=== PATIENT | female | born 1995 | race Caucasian/White ===

== ENCOUNTER 2017-05-23 19:54 | Emergency (ER) | payer OTHER ==
[~2017-05-23] VITALS: Ht 157.5 cm; Wt 97.8 kg
[~2017-05-23 19:54] MED LIST: BUPRTAB51 PO; VNTHFA/IN INH
[2017-05-23 19:56] VITALS: TEMP 36.5
[2017-05-23 20:29] VITALS: Ht 157.5 cm; Wt 97.8 kg
[2017-05-23 20:38] LABS: MANUAL MICROSCOPIC REQUIRED? NO; REVIEW REQ? NO; URINE APPEARANCE TURBID (CLEAR); URINE BILIRUBIN NEG (NEG); URINE COLOR YELLOW; URINE EPITHELIAL CELL AUTO >30 /lpf (0-5); URINE NITRITE NEG (NEG); UROBILINOGEN NEG (NEG)
[2017-05-23 21:04] LABS: BASO % 0.1 %; BASO ABS # 0.02 K/uL (0-0.2); COMPLETE YES; EOS % 0.7 %; HEMATOCRIT 40.2 % (37-47); IG% 0.7 %; LYMPH % 18.7 %; LYMPH ABS # 3.52 K/uL (1.2-3.4); MEAN CELL VOLUME 87.6 fL (80-100); MEAN CORPUSCULAR HEMOGLOBIN 30.7 pg (25-34); MEAN CORPUSCULAR HGB CONC 35.1 g/dl (32-36); MONO % 9.1 %; NEUT % 70.7 %; PLATELET COUNT 194 K/uL (130-400); RED BLOOD COUNT 4.59 M/uL (4.2-5.4); WHITE BLOOD COUNT 18.82 K/uL (4.8-10.8)
[2017-05-23 21:12] LABS: BUN/CREATININE RATIO 11.6 (10-20); CALCIUM 9.2 mg/dl (8.5-10.1); CREATININE 0.64 mg/dl (0.60-1.20); POTASSIUM 3.4 mmol/L (3.5-5.1)
[2017-05-23 21:13] LABS: PARTIAL THROMBOPLASTIN RATIO 1.2; PROTHROMBIN TIME (PATIENT) 10.2 SECONDS (9.0-12.0)
[2017-05-23 21:15] LABS: ALB/GLOB RATIO 1.1 (0.9-2)
[2017-05-23] MEDS ORDERED: CEFTRIAXONE SOD INJ 1 GM ADDVIAL IV STA (21:26)
--- NOTE | 2017-05-23 23:28 | DIAGNOSTIC IMAGING REPORT ---
ABDOMEN LIMITED (US) HISTORY: 21 years-old Female rlq abd pain COMPARISON: Pelvic ultrasound of same day TECHNIQUE: Multiple real-time sonographic images of the abdominal right lower quadrant were obtained assessing grayscale appearance FINDINGS/IMPRESSION: Appendix not diagnostically visualized. No secondary signs to suggest acute appendicitis. The above report was generated using voice recognition software. It may contain grammatical, syntax or spelling errors. Electronically signed by: Kb Junior M.D. 05/23/2017 11:27 PM Dictated Date/Time: 05/23/2017 11:25 PM
--- NOTE | 2017-05-23 23:39 | DIAGNOSTIC IMAGING REPORT ---
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 FINDINGS: TRANSABDOMINAL: Anteflexed uterus measures 7.4 x 4.6 x 7.2 cm. Intrauterine gestational sac is seen, 3.9 cm correlating with estimated gestational age of 9 weeks and 2 days. Yolk sac is seen, 0.4 cm. There is a small hypoechoic collection seen adjacent to the inferior gestational sac, 2.1 x 0.6 x 2.6 cm suggesting subchorionic hematoma. Ovaries are not well seen. TRANSVAGINAL: Gravid uterus is seen, 9.5 x 5.5 x 8.1 cm. Twin gestation is noted with 2 separate yolk sacs. Baby A crown rump length correlates with estimated gestational age of 8 weeks and 0 days with heart rate measured at 165 bpm. Yolk sac measures 0.4 cm. Baby B crown-rump length measure correlates with estimated gestational age of 6 weeks and 6 days. heart rate measures 163 bpm. Yolk sac measures 0.4 cm. Left ovary measures 3.8 x 1.5 x 3.9 cm. Arterial inflow within left ovary is seen. Left corpus luteum is noted, 1.9 cm. Right ovary seen, 3.4 x 2.4 x 1.7 cm. Arterial inflow within the right ovary is noted. IMPRESSION: 1. Intrauterine twin gestation with 2 separate yolk sacs noted which appear to be associated with a single gestational sac suggesting monochorionic diamniotic gestation. 2. Left corpus luteum. 3. Small subchorionic hematoma is noted. Attention on follow-up recommended. The above report was generated using voice recognition software. It may contain grammatical, syntax or spelling errors. Electronically signed by: Kb Junior M.D. 05/23/2017 11:38 PM Dictated Date/Time: 05/23/2017 11:30 PM
[2017-05-24] MEDS ORDERED: CEPH500C PO (00:42)
--- NOTE | 2017-05-24 01:30 | EMERGENCY ROOM VISIT NOTE ---
History Report prepared by Paulina: Cecily Ramirez Under the Supervision of: Dr. Bakari Ngo D.O. First contact with patient: 20:11 Chief Complaint: ABDOMINAL PAIN Stated Complaint: FLANK/ABD PAIN,SPOTTING, 8 WEEKS History of Present Illness The patient is a 21 year old female who presents to the Emergency Room with complaints of persistent abdominal pain starting 2 days ago. The patient is currently 8 weeks . She has not yet seen Ob. The last day of her last menstrual period was March 19. She has had 2 previous miscarriages. She describes the pain as cramping with some sharp pains. The pain is in her lower abdomen. She has been feeling dizzy, lightheaded, and fatigued. She has had dysuria starting this morning. She has 1 kidney and has had several kidney infections and UTIs in the past. She usually gets back pain with her kidney infections which she currently does not have. She has had spotting over the past 2 days which began as bright red and is now more brown. She is not passing any products. She denies any fever. She still has her gallbladder and appendix. Her first miscarriage was due to blood type. She had an ultrasound at 7 weeks which was normal. She denies any history of ectopic pregnancies. Source of History: patient Onset: 2 days ago Position: abdomen (lower) Quality: sharp, cramping Timing: other (persistent) Associated Symptoms: + urinary symptoms, + fatigue, No fevers, No back pain Note: Pt reports spotting, dizziness, lightheadedness. Review of Systems See HPI for pertinent positives & negatives. A total of 10 systems reviewed and were otherwise negative. Past Medical & Surgical Medical Problems: (1) Asthma, mild persistent (2) Bipolar 1 disorder Surgical Problems: (1) H/O heart surgery (2) H/O partial nephrectomy (3) S/P tonsillectomy and adenoidectomy Family History Diabetes mellitus FH: cancer FH: kidney disease FH: lung disease FHx: hypertension Heart disease Social History Smoking Status: Current Every Day Smoker Alcohol Use: none Drug Use: marijuana Current/Historical Medications Scheduled Cephalexin Monohydrate (Keflex), 500 MG PO QID Scheduled PRN Albuterol Hfa (Ventolin Hfa), 2 PUFF INH QID PRN for SOB/Wheezing Allergies Coded Allergies: No Known Allergies (Unverified , 05/23/17) Physical Exam Vital Signs Date Time Temp Pulse Resp B/P (MAP) Pulse Ox O2 Delivery O2 Flow Rate FiO2 05/24/17 00:18 69 16 128/73 100 Room Air 05/23/17 23:01 80 18 130/82 100 Room Air 05/23/17 19:56 36.5 94 18 135/84 100 Room Air Physical Exam GENERAL: sitting up in bed, tearful, no acute distress, nontoxic EYE EXAM: normal conjunctiva OROPHARYNX: no exudate, no erythema, lips, buccal mucosa, and tongue normal and mucous membranes are moist NECK: supple, no nuchal rigidity, no adenopathy, non-tender LUNGS: Clear to auscultation. Normal chest wall mechanics HEART: no murmurs, S1 normal and S2 normal ABDOMEN: abdomen soft, minimal diffuse tenderness, normo-active bowel sounds, no masses, no rebound or guarding. BEDSIDE ULTRASOUND: reveals IUP with heart rate of 164. BACK: Back is symmetrical on inspection and there is no deformity, no midline tenderness, no CVA tenderness. PELVIC: normal external genitalia, normal vaginal mucosa, faint white discharge SKIN: no rashes and no bruising UPPER EXTREMITIES: upper extremities are grossly normal. LOWER EXTREMITIES: No pitting edema. NEURO EXAM: Normal sensorium, cranial nerves II-XII grossly intact, normal speech, no gross weakness of arms, no gross weakness of legs. Medical Decision & Procedures ER Provider Diagnostic Interpretation: Radiology results as stated below per my review and the radiologist's interpretation: ABDOMEN LIMITED (US) HISTORY: 21 years-old Female rlq abd pain COMPARISON: Pelvic ultrasound of same day TECHNIQUE: Multiple real-time sonographic images of the abdominal right lower quadrant were obtained assessing grayscale appearance FINDINGS/IMPRESSION: Appendix not diagnostically visualized. No secondary signs to suggest acute appendicitis. The above report was generated using voice recognition software. It may contain grammatical, syntax or spelling errors. Electronically signed by: Kb Junior M.D. 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 FINDINGS: TRANSABDOMINAL: Anteflexed uterus measures 7.4 x 4.6 x 7.2 cm. Intrauterine gestational sac is seen, 3.9 cm correlating with estimated gestational age of 9 weeks and 2 days. Yolk sac is seen, 0.4 cm. There is a small hypoechoic collection seen adjacent to the inferior gestational sac, 2.1 x 0.6 x 2.6 cm suggesting subchorionic hematoma. Ovaries are not well seen. TRANSVAGINAL: Gravid uterus is seen, 9.5 x 5.5 x 8.1 cm. Twin gestation is noted with 2 separate yolk sacs. Baby A crown rump length correlates with estimated gestational age of 8 weeks and 0 days with heart rate measured at 165 bpm. Yolk sac measures 0.4 cm. Baby B crown-rump length measure correlates with estimated gestational age of 6 weeks and 6 days. heart rate measures 163 bpm. Yolk sac measures 0.4 cm. Left ovary measures 3.8 x 1.5 x 3.9 cm. Arterial inflow within left ovary is seen. Left corpus luteum is noted, 1.9 cm. Right ovary seen, 3.4 x 2.4 x 1.7 cm. Arterial inflow within the right ovary is noted. IMPRESSION: 1. Intrauterine twin gestation with 2 separate yolk sacs noted which appear to be associated with a single gestational sac suggesting monochorionic diamniotic gestation. 2. Left corpus luteum. 3. Small subchorionic hematoma is noted. Attention on follow-up recommended. The above report was generated using voice recognition software. It may contain grammatical, syntax or spelling errors. Electronically signed by: Kb Junior M.D. 05/23/2017 11:38 PM Dictated Date/Time: 05/23/2017 11:30 PM Laboratory Results 05/23/17 20:10 Red Blood Count 4.59, Mean Corpuscular Volume 87.6, Mean Corpuscular Hemoglobin 30.7, Mean Corpuscular Hemoglobin Concent 35.1, Mean Platelet Volume 13.0, Neutrophils (%) (Auto) 70.7, Lymphocytes (%) (Auto) 18.7, Monocytes (%) (Auto) 9.1, Eosinophils (%) (Auto) 0.7, Basophils (%) (Auto) 0.1, Neutrophils # (Auto) 13.28, Lymphocytes # (Auto) 3.52, Monocytes # (Auto) 1.72, Eosinophils # (Auto) 0.14, Basophils # (Auto) 0.02 05/23/17 20:10 Test 05/23/17 20:10 05/23/17 23:55 White Blood Count 18.82 K/uL (4.8-10.8) Red Blood Count 4.59 M/uL (4.2-5.4) Hemoglobin 14.1 g/dL (12.0-16.0) Hematocrit 40.2 % (37-47) Mean Corpuscular Volume 87.6 fL (80-100) Mean Corpuscular Hemoglobin 30.7 pg (25-34) Mean Corpuscular Hemoglobin Concent 35.1 g/dl (32-36) Platelet Count 194 K/uL (130-400) Mean Platelet Volume 13.0 fL (7.4-10.4) Neutrophils (%) (Auto) 70.7 % Lymphocytes (%) (Auto) 18.7 % Monocytes (%) (Auto) 9.1 % Eosinophils (%) (Auto) 0.7 % Basophils (%) (Auto) 0.1 % Neutrophils # (Auto) 13.28 K/uL (1.4-6.5) Lymphocytes # (Auto) 3.52 K/uL (1.2-3.4) Monocytes # (Auto) 1.72 K/uL (0.11-0.59) Eosinophils # (Auto) 0.14 K/uL (0-0.5) Basophils # (Auto) 0.02 K/uL (0-0.2) RDW Standard Deviation 44.1 fL (36.4-46.3) RDW Coefficient of Variation 13.9 % (11.5-14.5) Immature Granulocyte % (Auto) 0.7 % Immature Granulocyte # (Auto) 0.14 K/uL (0.00-0.02) Prothrombin Time 10.2 SECONDS (9.0-12.0) Prothromb Time International Ratio 1.0 (0.9-1.1) Activated Partial Thromboplast Time 31.4 SECONDS (21.0-31.0) Partial Thromboplastin Ratio 1.2 Urine Color YELLOW Urine Appearance TURBID (CLEAR) Urine pH 7.0 (4.5-7.5) Urine Specific Frostproof 1.020 (1.000-1.030) Urine Protein NEG (NEG) Urine Glucose (UA) NEG (NEG) Urine Ketones NEG (NEG) Urine Occult Blood NEG (NEG) Urine Nitrite NEG (NEG) Urine Bilirubin NEG (NEG) Urine Urobilinogen NEG (NEG) Urine Leukocyte Esterase LARGE (NEG) Urine WBC (Auto) >30 /hpf (0-5) Urine RBC (Auto) 5-10 /hpf (0-4) Urine Hyaline Casts (Auto) 1-5 /lpf (0-5) Urine Epithelial Cells (Auto) >30 /lpf (0-5) Urine Bacteria (Auto) NEG (NEG) Anion Gap 6.0 mmol/L (3-11) Est Creatinine Clear Calc Drug Dose 153.2 ml/min Estimated GFR () 148.9 Estimated GFR (Non- 128.5 BUN/Creatinine Ratio 11.6 (10-20) Calcium Level 9.2 mg/dl (8.5-10.1) Total Bilirubin 0.2 mg/dl (0.2-1) Aspartate Amino Transf (AST/SGOT) 10 U/L (15-37) Alanine Aminotransferase (ALT/SGPT) 14 U/L (12-78) Alkaline Phosphatase 58 U/L (45-117) Total Protein 7.0 gm/dl (6.4-8.2) Albumin 3.7 gm/dl (3.4-5.0) Globulin 3.3 gm/dl (2.5-4.0) Albumin/Globulin Ratio 1.1 (0.9-2) Human Chorionic Gonadotropin, Quant 112777 mIU/mL Laboratory results per my review. Medications Administered Medications (Trade) Dose Ordered Sig/Amy Route Start Time Stop Time Status Last Admin Dose Admin Ceftriaxone Sodium (Rocephin Inj) 1 gm NOW STAT IV 05/23/17 21:26 05/23/17 21:27 DC 05/23/17 22:59 1 GM ED Course ED COURSE: Vital signs were reviewed and showed normal vitals The patients medical record was reviewed The above diagnostic studies were performed and reviewed. ED treatments and interventions as stated above. 2013: The patient was evaluated in room A9B. A complete history and physical examination was performed. 2120: I reevaluated the patient. She is doing well. 2125: Rocephin Inj 1 gm IV. 2350: Pelvic exam was performed in the presence of a female nurse inside tester. 0033: I discussed the patient's case with Cristy Partida Passenger Car Upholsterer Apprentice. He recommends follow up as an outpatient. 0039: Upon reevaluation, the patient is resting comfortably.I discussed my findings with the patient and she understands and agrees with the treatment plan. Based on the patients age, coexisting illnesses, exam and lab findings the decision to treat as an outpatient was made. The patient remained stable while under my care. The patient appeared well at the time of discharge. Medical Decision Differential diagnoses includes but is not limited to gastritis, peptic ulcer disease, GERD, gallbladder disease, pancreatitis, small bowel obstruction, acute coronary syndrome, pericarditis, ischemic bowel, irritable bowel disease, irritable bowel syndrome, appendicitis, diverticulitis, malignancy, hernia, urinary tract infection, torsion, /ectopic , perforation, trauma, infectious. Patient is a 21-year-old female who presents to the ER who has had 2 previous miscarriages for vaginal leading at 8 weeks . She had no sun done through fascia which showed an IUP. Last menstrual period was March 19. She does have minimal right lower quadrant abdominal pain which comes and goes for the past 3 days. She is admitted to increase urinary frequency, burning and urgency. She also admits to faint spotting since Saturday. Left showed stenosis of 18,000. UA supports a UTI. She is given a gram of Rocephin. CBC on BMP, LFTs were unremarkable. HCG clot was 130,000. GC and chlamydia cultures were sent. Ultrasound suggested twins with a small subchorionic bleed. Her lower quadrants was performed but appendix was not visualized. She has no rebound or guarding. I do not feel CT is warranted at this time as I think her symptoms can be explained by the UTI. She was given program. Patient was updated bedside. Discussed with OB. Patient was discharged to follow-up and have an abdominal recheck within 24 hours. Any worsening of her symptoms she was given strict instructions to return immediately to the ER for another abdominal evaluation. Discussed with Pt concerning signs and symptoms to watch out for. Pt was instructed to follow up with their PCP and discussed with the patient their option to return to the ED at anytime for persistent or worsening symptoms. The appropriate anticipatory guidance and out-patient management, including indications for return to the emergency department, were explained at length to the patient and understood. Medication Reconcilliation Current Medication List: was personally reviewed by me Blood Pressure Screening Patient's blood pressure: Normal blood pressure Blood pressure disposition: Did not require urgent referral Consults Time Called: 001 Consulting Physician: Cristy Partida Passenger Car Upholsterer Apprentice Returned Call: [phone] I discussed the patient's case with him. He recommends follow up as an outpatient. Impression Primary Impression: Lower abdominal pain Additional Impressions: Vaginal bleeding UTI (urinary tract infection) Scribe Attestation The scribe's documentation has been prepared under my direction and personally reviewed by me in its entirety. I confirm that the note above accurately reflects all work, treatment, procedures, and medical decision making performed by me. Departure Information Dispostion Home / Self-Care Prescriptions Cephalexin Monohydrate (Keflex) 500 Mg Cap 500 MG PO QID, #40 CAP Prov: Bakari Ngo, 05/24/17 Referrals Vipul Culver M.D. (PCP) Forms HOME CARE DOCUMENTATION FORM, IMPORTANT VISIT INFORMATION Patient Instructions ED UTI Cystitis Female, My [facility] Additional Instructions Please follow up with your DIGITAL FIELD SERVICE TECHNICIAN with in the next 24 hours. Any worsening of your symptoms, please return to the ED immediately. This includes any fevers greater than 100.4, worsening pain, chest pain, shortness breath, persistent nausea, vomiting, unable to eat or drink, vaginal bleeding, vaginal discharge, or any other concerning signs or symptoms from your standpoint. Please take antibiotics as prescribed. Ultrasound of the abdomen was then able to visualize the appendix. If you start to have focal right lower quadrant abdominal pain you need to return immediately to the ER. Problem Qualifiers Additional Impressions: UTI (urinary tract infection) Urinary tract infection type: acute cystitis Hematuria presence: with hematuria Qualified Codes: N30.01 - Acute cystitis with hematuria
[2017-05-24 01:31] VITALS: BP 123/87; PULSE 86; O2SAT 99
[2017-05-27 10:37] LABS: CHLAMYDIA TRACH RNA*** NOT DETECTED (NOT DETECTED); GC (NEIS GONORRHOEAE)RNA** NOT DETECTED (NOT DETECTED)
== END 2017-05-24 01:32 | disposition home or self-care (01) ==
LOC: C.EDB 19:55 → C.EDA 05-24 01:32
DX: O23.41 Unspecified infection of urinary tract in pregnancy, first trimester (principal); O99.331 Smoking (tobacco) complicating pregnancy, first trimester; F17.210 Nicotine dependence, cigarettes, uncomplicated; Z3A.08 8 weeks gestation of pregnancy; O99.341 Other mental disorders complicating pregnancy, first trimester; F12.90 Cannabis use, unspecified, uncomplicated; O99.511 Diseases of the respiratory system complicating pregnancy, first trimester; Z90.5 Acquired absence of kidney; J45.909 Unspecified asthma, uncomplicated; F31.9 Bipolar disorder, unspecified; Z83.3 Family history of diabetes mellitus; Z82.49 Family history of ischemic heart disease and other diseases of the circulatory system

== ENCOUNTER 2017-10-20 14:38 | Emergency (ER) | payer OTHER ==
[~2017-10-20] VITALS: Ht 157.5 cm; Wt 100.7 kg
[~2017-10-20 14:38] MED LIST changes: -BUPRTAB51 PO; +CEPH500C PO; -VNTHFA/IN INH
[2017-10-20 14:58] VITALS: Ht 157.5 cm; Wt 100.7 kg
[2017-10-20] MEDS ORDERED: SODIUM CHLORIDE 0.9% 500ML 500 ML IV STA (16:10)
[2017-10-20] MEDS ORDERED: POLY335019 PO (16:20)
[2017-10-20] MEDS ORDERED: PRENTAB26 PO (16:20)
[2017-10-20 16:38] LABS: BASO % 0.1 %; BASO ABS # 0.02 K/uL (0-0.2); EOS % 0.9 %; EOS ABS # 0.15 K/uL (0-0.5); HEMATOCRIT 35.3 % (37-47); HEMOGLOBIN 12.1 g/dL (12.0-16.0); LYMPH % 17.8 %; LYMPH ABS # 2.96 K/uL (1.2-3.4); MEAN CELL VOLUME 88.5 fL (80-100); MEAN CORPUSCULAR HEMOGLOBIN 30.3 pg (25-34); MEAN CORPUSCULAR HGB CONC 34.3 g/dl (32-36); MEAN PLATELET VOLUME 11.9 fL (7.4-10.4); MONO % 9.2 %; MONO ABS # 1.53 K/uL (0.11-0.59); NEUT % 70.8 %; NEUT ABS # 11.78 K/uL (1.4-6.5); PLATELET COUNT 179 K/uL (130-400); RED CELL DISTRIBUTION WIDTH CV 13.2 % (11.5-14.5); RED CELL DISTRIBUTION WIDTH SD 42.7 fL (36.4-46.3); WHITE BLOOD COUNT 16.64 K/uL (4.8-10.8)
--- NOTE | 2017-10-20 16:43 | EMERGENCY ROOM VISIT NOTE ---
History First contact with patient: 15:55 Chief Complaint: SYNCOPE Stated Complaint: 7 MOS ,PASSED OUT & FELL DOWN STAIRS - Nursing Triage Summary: Patient presents with c/o dizziness and syncopal episode last night States she fell down her steps and injured tailbone and legs Ambulatory to triage History of Present Illness The patient is a 22 year old female who presents to the Emergency Room with complaints of a near syncopal episode and fall that occurred last night. The patient became very dizzy. She says that her legs went to "jelly." She fell down 4 wooden steps landing on her buttocks and striking her back against last step. She is complaining of lower back discomfort and pain in her tailbone. The patient is 7 months . She has had a high risk . She has been seeing an [facility] doctor every 2 weeks. The patient is concerned that she has not been feeling the baby move today is much as usual. She denies any lower abdominal cramping or bleeding. She denies any current dizziness. She denies any chest pain or difficulty breathing prior to falling. She has been eating and drinking normally. 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 Review of Systems 10 system review performed and negative unless noted in HPI or below Past Medical/Surgical History Medical Problems: (1) Asthma, mild persistent (2) Bipolar 1 disorder Surgical Problems: (1) H/O heart surgery (2) H/O partial nephrectomy (3) S/P tonsillectomy and adenoidectomy Family History Diabetes mellitus FH: cancer FH: kidney disease FH: lung disease FHx: hypertension Heart disease Social History Smoking Status: Current Every Day Smoker Alcohol Use: none Drug Use: marijuana Marital Status: in relationship Current/Historical Medications Scheduled Cephalexin Monohydrate (Keflex), 500 MG PO QID Multivit/Min/Iron/Fol Ac/Pren ( Vitamin), 1 TAB PO DAILY Polyethylene Glycol 3350 (Miralax), 17 GM PO DAILY Scheduled PRN Albuterol Hfa (Ventolin Hfa), 2 PUFFS INH QID PRN for SOB/Wheezing Physical Exam Vital Signs Date Time Temp Pulse Resp B/P (MAP) Pulse Ox O2 Delivery O2 Flow Rate FiO2 10/20/17 19:01 37.0 93 18 124/75 98 10/20/17 18:13 82 17 124/75 98 Room Air 10/20/17 17:13 77 23 98 10/20/17 17:13 85 16 98 Room Air 10/20/17 17:08 80 21 98 10/20/17 17:03 94 10 97 10/20/17 16:58 83 19 99 10/20/17 16:53 86 21 99 10/20/17 16:52 87 10/20/17 16:20 89 16 126/86 98 Room Air 89 123/88 106 139/94 10/20/17 16:15 139/94 10/20/17 14:58 37.0 108 16 128/85 97 Room Air Physical Exam VITALS: Vitals are noted on the nurse's note and reviewed by myself. Vital signs stable. GENERAL: 22-year-old female, anxious in appearance, SKIN: The skin was without rashes, erythema, edema, or bruising. HEAD: Normocephalic atraumatic. EYES: . Conjunctivae without injection, sclerae without icterus. Extraocular movements intact. MOUTH: Mucous membranes slightly dry. NECK: Supple without nuchal rigidity. No lymphadenopathy. Cervical spine is nontender. No JVD. HEART: Tachycardic, regular rhythm without murmurs gallops or rubs. LUNGS: Clear to auscultation bilaterally without wheezes, rales or rhonchi. No accessory muscle use. ABDOMEN: Gravid. Positive bowel sounds x 4.Soft, nontender, without organomegaly. No guarding or rebound tenderness. No CVA tenderness bilaterally. MUSCULOSKELETAL: Mild tenderness over the lumbar spinous processes. No tenderness over the SI joint. No muscle atrophy, erythema, or edema noted. Full range of motion in all extremities Strength 5/5 throughout. DP pulse +2 bilaterally. NEURO: Patient was alert and oriented to person place and time. Normal sensation to touch. No focal neurological deficits. Medical Decision & Procedures ER Provider Diagnostic Interpretation: US Patient Name: DOROTEO BENSON Unit Number: [id number] Dictated: 10/20/171736 Transcribed: 10/20/171736 RAFAEL Printed Date/Time: [~ rep prt dt]/[~ rep prt tm] [~ rep ct labl] - [~ rep ct ivnm] [facility] [place] [address] Dictated: 10/20/171736 Transcribed: 10/20/17 173 PAJ Printed Date/Time: [~ rep prt dt]/[~ rep prt tm] [~ rep ct labl] - [~ rep ct ivnm] IMPRESSION: Single viable 29 week and 4 day intrauterine gestation. The heart rate was 128 bpm. Electronically signed by: Mo Kraft M.D. 10/20/2017 5:41 PM Dictated Date/Time: 10/20/2017 5:37 PM The status of this report is Signed. Draft = Not yet reviewed or approved by Radiologist. Signed = Reviewed and approved by Radiologist. <AttendingPhy></AttendingPhy> <FamilyPhy>Vipul Culver M.D.</FamilyPhy> < PrimaryPhy>Vipul Culver M.D.</PrimaryPhy> <UnitNumber>[id number]</ UnitNumber> <VisitNumber>[id number]</VisitNumber> <PatientName>DOROTEO BENSON</ PatientName> <DateOfBirth>1995</DateOfBirth> <Location>[facility]</Location> < ServiceDate>10/20/17</ServiceDate> <MNE>ESINDI</MNE> <OrderingPhy>Karina Rees PA-C</OrderingPhy> <OrderingPhyMNE>f rep ord dr negron</OrderingPhyMNE> < DictatingPhyMNE>f rep dict dr negron</DictatingPhyMNE> <CCListMNE>f rep ct mne</ CCListMNE> <AdmittingPhyMNE>f pt admit dr negron</AdmittingPhyMNE> <AttendingPhyMNE >f pt attend dr negron</AttendingPhyMNE> <ConsultingPhyMNE>f pt consult dr negron</ConsultingPhyMNE> <FamilyPhyMNE>f pt fam dr negron</FamilyPhyMNE> <OtherPhyMNE>f pt other dr negron</OtherPhyMNE> < PrimaryPhyMNE>f pt prim care dr negron</PrimaryPhyMNE> <ReferringPhyMNE>f pt referring dr mne</ReferringPhyMNE> Laboratory Results 10/20/17 16:28 Red Blood Count 3.99, Mean Corpuscular Volume 88.5, Mean Corpuscular Hemoglobin 30.3, Mean Corpuscular Hemoglobin Concent 34.3, Mean Platelet Volume 11.9, Neutrophils (%) (Auto) 70.8, Lymphocytes (%) (Auto) 17.8, Monocytes (%) (Auto) 9.2, Eosinophils (%) (Auto) 0.9, Basophils (%) (Auto) 0.1, Neutrophils # (Auto) 11.78, Lymphocytes # (Auto) 2.96, Monocytes # (Auto) 1.53, Eosinophils # (Auto) 0.15, Basophils # (Auto) 0.02 10/20/17 16:28 Test 10/20/17 16:16 10/20/17 16:28 Urine Color YELLOW Urine Appearance TURBID (CLEAR) Urine pH 7.5 (4.5-7.5) Urine Specific [place] 1.020 (1.000-1.030) Urine Protein NEG (NEG) Urine Glucose (UA) NEG (NEG) Urine Ketones NEG (NEG) Urine Occult Blood NEG (NEG) Urine Nitrite POS (NEG) Urine Bilirubin NEG (NEG) Urine Urobilinogen NEG (NEG) Urine Leukocyte Esterase LARGE (NEG) Urine WBC (Auto) >30 /hpf (0-5) Urine RBC (Auto) 0-4 /hpf (0-4) Urine Hyaline Casts (Auto) 10-30 /lpf (0-5) Urine Epithelial Cells (Auto) >30 /lpf (0-5) Urine Bacteria (Auto) 4+ (NEG) White Blood Count 16.64 K/uL (4.8-10.8) Red Blood Count 3.99 M/uL (4.2-5.4) Hemoglobin 12.1 g/dL (12.0-16.0) Hematocrit 35.3 % (37-47) Mean Corpuscular Volume 88.5 fL (80-100) Mean Corpuscular Hemoglobin 30.3 pg (25-34) Mean Corpuscular Hemoglobin Concent 34.3 g/dl (32-36) Platelet Count 179 K/uL (130-400) Mean Platelet Volume 11.9 fL (7.4-10.4) Neutrophils (%) (Auto) 70.8 % Lymphocytes (%) (Auto) 17.8 % Monocytes (%) (Auto) 9.2 % Eosinophils (%) (Auto) 0.9 % Basophils (%) (Auto) 0.1 % Neutrophils # (Auto) 11.78 K/uL (1.4-6.5) Lymphocytes # (Auto) 2.96 K/uL (1.2-3.4) Monocytes # (Auto) 1.53 K/uL (0.11-0.59) Eosinophils # (Auto) 0.15 K/uL (0-0.5) Basophils # (Auto) 0.02 K/uL (0-0.2) RDW Standard Deviation 42.7 fL (36.4-46.3) RDW Coefficient of Variation 13.2 % (11.5-14.5) Immature Granulocyte % (Auto) 1.2 % Immature Granulocyte # (Auto) 0.20 K/uL (0.00-0.02) Anion Gap 10.0 mmol/L (3-11) Est Creatinine Clear Calc Drug Dose 164.7 ml/min Estimated GFR () > 150.0 Estimated GFR (Non- 130.3 BUN/Creatinine Ratio 9.9 (10-20) Calcium Level 8.9 mg/dl (8.5-10.1) Total Bilirubin 0.2 mg/dl (0.2-1) Aspartate Amino Transf (AST/SGOT) 17 U/L (15-37) Alanine Aminotransferase (ALT/SGPT) 21 U/L (12-78) Alkaline Phosphatase 84 U/L (45-117) Troponin I < 0.015 ng/ml (0-0.045) Total Protein 6.6 gm/dl (6.4-8.2) Albumin 2.9 gm/dl (3.4-5.0) Globulin 3.7 gm/dl (2.5-4.0) Albumin/Globulin Ratio 0.8 (0.9-2) Medications Administered Medications (Trade) Dose Ordered Sig/Amy Route Start Time Stop Time Status Last Admin Dose Admin Sodium Chloride 500 ml @ 999 mls/hr Q31M STAT IV 10/20/17 16:10 10/20/17 16:40 DC 10/20/17 16:44 999 MLS/HR Ceftriaxone Sodium (Rocephin Im) 1,000 mg NOW ONCE IM 10/20/17 18:30 10/20/17 18:31 DC 10/20/17 18:39 1,000 MG ECG Indication: syncope Rate (beats per minute): 104 Rhythm: sinus tachycardia ED Course Patient was seen and examined Vital signs including blood pressure were reviewed medications list was verified with patient Labs were obtained, and a saline lock was established An EKG was performed and reviewed by myself and my supervising physician The patient was hydrated with 500 mL normal saline An ultrasound was performed and reviewed The patient was reassessed. She had requested her IV be taken now as it was hurting. We discussed the results of her workup. She voiced understanding. The patient was given 1 dose of Rocephin 1 g IM The case was discussed with Dr. Murguia from [facility]. The patient was reassessed and resting comfortably. She was comfortable being discharged home. I reviewed discharge instructions the patient. They voiced understanding and had no further questions. Medical Decision Differential diagnosis: Dehydration, vasovagal syncope, neurogenic syncope, cardiac arrhythmia, pulmonary embolus, infectious etiology This patient is a 22-year-old female that is 7 months presents to the emergency department with a near syncopal episode and fall down4 wooden steps. On exam, she did not have any signs of significant trauma. No bruising. She is neurovascularly intact. She did not complain of any chest pain or difficulty breathing. I do not suspect cardiac ischemia or arrhythmia. Her EKG shows no signs of ischemia. I also have low suspicion for pulmonary embolus. She appeared slightly dehydrated on exam. Her workup reveals a UTI. The patient does not have any CVA tenderness. She did have a white count of 16, 000. Believe this is the cause of her lightheadedness/weakness. A ultrasound was performed. is viable. No signs of trauma. Heart rate 128 bpm The case was discussed with on-call [facility] HEALTH ADVISOR. They were comfortable with her being discharged home. A urine culture was sent. Patient was treated with 1 dose of Rocephin in the emergency department. She will be sent home with a seven-day course of Keflex per [facility] recommendations. The patient was cautioned to return to the emergency department immediately with any new or worsening symptoms. This chart was completed in part utilizing [employer] Voice Recognition software. Attempts were made to minimize the grammatical errors, random word insertions, pronoun errors and incomplete sentences. Any formal questions or concerns about the content, text or information contained within the body of this dictation should be directly addressed to the provider for clarification. Medication Reconcilliation Current Medication List: was personally reviewed by me Blood Pressure Screening Patient's blood pressure: Normal blood pressure Impression Primary Impression: UTI (urinary tract infection) Departure Information Dispostion Home / Self-Care Condition GOOD Prescriptions Cephalexin Monohydrate (Keflex) 500 Mg Cap 500 MG PO QID for 7 Days, #28 CAP Prov: Karina Rees PA-C 10/20/17 Referrals Vipul Culver M.D. (PCP) Patient Instructions My [facility], UTI Additional Instructions You have been evaluated in the emergency department for an episode of significant weakness and fall. Your workup is consistent with a urinary tract infection, which is likely the cause of the weakness. It is very important for you to finish the entire course of antibiotics Stay well hydrated. Increase your fluid intake over the next several days Please call your [facility] doctor in the morning for a follow-up appointment Tylenol 650 mg every 6 hours as needed for pain Please do not hesitate to return to the emergency department with any new, worsening or concerning symptoms; especially, lower abdominal cramping, vaginal bleeding, decreased movement, fever, flank pain or vomiting Work Instructions Return To Work: 1 day
[2017-10-20] MEDS ORDERED: VNTHFA/IN INH (16:48)
[2017-10-20 16:55] LABS: ALBUMIN 2.9 gm/dl (3.4-5.0); ALT/SGPT 21 U/L (12-78); BLOOD UREA NITROGEN 6 mg/dl (7-18); CALCIUM 8.9 mg/dl (8.5-10.1); CARBON DIOXIDE 22 mmol/L (21-32); GLUCOSE 86 mg/dl (70-99); POTASSIUM 3.8 mmol/L (3.5-5.1); SODIUM 138 mmol/L (136-145)
[2017-10-20 17:00] LABS: ALKALINE PHOSPHATASE 84 U/L (45-117); AST/SGOT 17 U/L (15-37); TOTAL PROTEIN 6.6 gm/dl (6.4-8.2)
--- NOTE | 2017-10-20 17:42 | DIAGNOSTIC IMAGING REPORT ---
LIMITED (US) CLINICAL HISTORY: decreased movement high risk COMPARISON STUDY: ultrasound 05/23/2017. FINDINGS: The cervix appears closed and measures 3.5 cm in length. The femur length is 5.6 cm consistent with a 29 week and 4 day intrauterine gestation. Amniotic fluid index is 14 cm. There is a fundal/posterior placenta. No subchorionic hematoma. heart rate is 128 bpm. A anatomic survey was not performed. IMPRESSION: Single viable 29 week and 4 day intrauterine gestation. The heart rate was 128 bpm. Electronically signed by: Mo Kratf M.D. 10/20/2017 5:41 PM Dictated Date/Time: 10/20/2017 5:37 PM
[2017-10-20] MEDS ORDERED: CEFTRIAXONE SOD 350MG/ML 1 GM VIAL IM ONE (18:30)
[2017-10-20] MEDS ORDERED: CEPH500C PO (18:52)
[2017-10-20 19:01] VITALS: BP 124/75; PULSE 93; TEMP 37; O2SAT 98
== END 2017-10-20 19:02 | disposition home or self-care (01) ==
LOC: C.EDB 14:40 → C.EDA 19:02
DX: O23.42 Unspecified infection of urinary tract in pregnancy, second trimester (principal); O99.342 Other mental disorders complicating pregnancy, second trimester; O99.512 Diseases of the respiratory system complicating pregnancy, second trimester; Z3A.29 29 weeks gestation of pregnancy; W10.9XXA Fall (on) (from) unspecified stairs and steps, initial encounter; J45.30 Mild persistent asthma, uncomplicated; F31.9 Bipolar disorder, unspecified; Z90.5 Acquired absence of kidney; F17.210 Nicotine dependence, cigarettes, uncomplicated; O99.332 Smoking (tobacco) complicating pregnancy, second trimester; Z83.3 Family history of diabetes mellitus; Z80.9 Family history of malignant neoplasm, unspecified; Z82.49 Family history of ischemic heart disease and other diseases of the circulatory system; Z84.0 Family history of diseases of the skin and subcutaneous tissue

== ENCOUNTER 2017-11-09 23:12 | Outpatient (CLI) | payer OTHER ==
[~2017-11-09] VITALS: Ht 157.5 cm; Wt 102.3 kg
[~2017-11-09 23:12] MED LIST changes: -CEPH500C PO; +POLY335019 PO; +PRENTAB26 PO; +VNTHFA/IN INH
[2017-11-10 00:05] VITALS: Ht 157.5 cm; Wt 102.3 kg
--- NOTE | 2017-11-10 00:32 | Progress Note ---
Progress Note Date of Service Nov 10, 2017. Progress Note 22yo presents to L&D with the ff complaints: " I have lost my mucous plug " On antibx for UTI Pt is placed on monitor FHR; CAT1 CTx; Minimal VE: closed/no effacement and posterior last intercourse less that 24hrs Reviewed PN course, PMH, PSG, Meds and Allergies Pt given oral hydration FFN deferred D/c home with instructions
--- NOTE | 2017-11-10 00:36 | Discharge Instructions ---
Discharge Instructions Date of Service Nov 10, 2017. Admission Reason for Admission: Check Pre-Term Labor Discharge Discharge Diagnosis / Problem: labor Discharge Goals Goal(s): Continuing OB care Activity Recommendations Activity Limitations: as noted below ACTIVITY RECOMMENDATIONS: See Labor Sheet. SPECIAL CARE INSTRUCTIONS: Call Doctor if: * Regular contractions every 5 minutes or greater than contractions in one hour. * Bleeding * Water breaks or is leaking * Decreased movement * Fever >100.4 degrees F * Pain not relieved by routine measures or pain medication ordered. FOLLOW UP VISIT: Return to Labor and Delivery on for /call for appointment time . Follow-up Visit with: When: . Current Hospital Diet Patient's current hospital diet: Discharge Diet Recommended Diet: Regular Diet Pending Studies Studies pending at discharge: no Medical Emergencies . Who to Call and When: Medical Emergencies: If at any time you feel your situation is an emergency, please call 911 immediately. . Non-Emergent Contact Non-Emergency issues call your: Specialist . . "Provider Documentation" section prepared by Akil Santiago. . VTE Core Measure Inpt VTE Proph given/why not?: Treatment not indicated
== END 2017-11-10 00:50 | disposition home or self-care (01) ==
LOC: C.OPB 23:12 → C.LD 23:12 → C.OPB 11-10 00:50
PROVIDERS: ATTEND Obstetrics & Gynecology
DX: O60.00 Preterm labor without delivery, unspecified trimester (principal); O23.40 Unspecified infection of urinary tract in pregnancy, unspecified trimester; N39.0 Urinary tract infection, site not specified; Z3A.00 Weeks of gestation of pregnancy not specified

== ENCOUNTER 2017-12-11 19:03 | Outpatient (CLI) | payer OTHER ==
[~2017-12-11] VITALS: Ht 157.5 cm; Wt 101.9 kg
[2017-12-11] MEDS ORDERED: ACETAMINOPHEN 325 MG TAB PO PRN (20:00)
[2017-12-11 20:05] VITALS: Ht 157.5 cm; Wt 101.9 kg
[2017-12-11] MEDS ORDERED: FLUCONAZOLE 50 MG TAB PO ONE (21:15)
[2017-12-11] MEDS ORDERED: OXYCODONE/ACETAMINOPHEN 5-325 TAB PO PRN (21:15)
--- NOTE | 2017-12-11 22:37 | Discharge Instructions ---
Discharge Instructions Date of Service Dec 11, 2017. Admission Reason for Admission: Check Labor Discharge Discharge Diagnosis / Problem: Musculoskeletal pain of , vaginal yissel Discharge Goals Goal(s): Continuing OB care Activity Recommendations Activity Limitations: as noted below SPECIAL CARE INSTRUCTIONS: Call Doctor if: * Regular contractions every 5 minutes or greater than 5 contractions in one hour. * Bleeding * Water breaks or is leaking * Decreased movement * Fever >100.4 degrees F * Pain not relieved by routine measures or pain medication ordered. FOLLOW UP VISIT: Return to Labor and Delivery on for /call for appointment time . Follow-up Visit with: When: . Current Hospital Diet Patient's current hospital diet: Discharge Diet Recommended Diet: Regular Diet Pending Studies Studies pending at discharge: yes List of pending studies: GBS culture Work Instructions Return To Work: 1 day Additional Instructions: Patient to be off work on 12/12/17 Medical Emergencies . Who to Call and When: Medical Emergencies: If at any time you feel your situation is an emergency, please call 911 immediately. . Non-Emergent Contact Non-Emergency issues call your: Specialist Call Non-Emergent contact if: you have a fever, temperature is above 100.5, temperature is above 101, your pain is not controlled, your pain is worsening, your pain is unusual for you, your pain is concerning you, you have any medication questions . . "Provider Documentation" section prepared by Maik Díaz. .
== END 2017-12-11 22:45 | disposition home or self-care (01) ==
LOC: C.LD 19:03 → C.OPB 19:03
PROVIDERS: ATTEND Obstetrics & Gynecology
DX: O62.9 Abnormality of forces of labor, unspecified (principal); O99.89 Other specified diseases and conditions complicating pregnancy, childbirth and the puerperium; M54.9 Dorsalgia, unspecified; R10.2 Pelvic and perineal pain; O99.213 Obesity complicating pregnancy, third trimester; E66.9 Obesity, unspecified; O36.0990 Maternal care for other rhesus isoimmunization, unspecified trimester, not applicable or unspecified; O99.333 Smoking (tobacco) complicating pregnancy, third trimester; F17.210 Nicotine dependence, cigarettes, uncomplicated; Z3A.36 36 weeks gestation of pregnancy

== ENCOUNTER 2017-12-16 15:04 | Outpatient (CLI) | payer OTHER ==
[2017-12-16] MEDS ORDERED: LACTATED RINGER'S 1000ML 500 ML IV ONE (15:12)
[2017-12-16] MEDS ORDERED: LACTATED RINGER'S 1000ML 1,000 ML IV SCH (15:12)
== END 2017-12-16 17:50 | disposition home or self-care (01) ==
LOC: C.OPB 15:04 → C.LD 15:04 → C.OPB 17:50
PROVIDERS: ATTEND Obstetrics & Gynecology
DX: O62.9 Abnormality of forces of labor, unspecified (principal); Z3A.00 Weeks of gestation of pregnancy not specified

== ENCOUNTER 2017-12-27 20:09 | Outpatient (CLI) | payer OTHER ==
[2017-12-27 21:01] LABS: BASO % 0.2 %; BASO ABS # 0.03 K/uL (0-0.2); EOS % 0.7 %; EOS ABS # 0.14 K/uL (0-0.5); HEMATOCRIT 35.6 % (37-47); HEMOGLOBIN 11.8 g/dL (12.0-16.0); IG# 0.36 K/uL (0.00-0.02); LYMPH % 17.5 %; LYMPH ABS # 3.27 K/uL (1.2-3.4); MEAN CELL VOLUME 86.2 fL (80-100); MEAN CORPUSCULAR HEMOGLOBIN 28.6 pg (25-34); MEAN PLATELET VOLUME 12.5 fL (7.4-10.4); MONO % 8.1 %; MONO ABS # 1.51 K/uL (0.11-0.59); NEUT % 71.6 %; NEUT ABS # 13.37 K/uL (1.4-6.5); PLATELET COUNT 225 K/uL (130-400); RED CELL DISTRIBUTION WIDTH CV 14.5 % (11.5-14.5); RED CELL DISTRIBUTION WIDTH SD 45.2 fL (36.4-46.3); WHITE BLOOD COUNT 18.68 K/uL (4.8-10.8)
[2017-12-27 21:07] LABS: MEAN CORPUSCULAR HGB CONC 33.1 g/dl (32-36)
[2017-12-27 21:38] LABS: ALBUMIN 2.5 gm/dl (3.4-5.0); ALKALINE PHOSPHATASE 195 U/L (45-117); ALT/SGPT 12 U/L (12-78); AST/SGOT 11 U/L (15-37); TOTAL PROTEIN 6.3 gm/dl (6.4-8.2)
--- NOTE | 2017-12-27 21:44 | Progress Note ---
Progress Note Date of Service Dec 27, 2017. Progress Note 22 F P0000 at 39 weeks sent over from the office for evaluation of 3+ dip urine in office today. she was seen for r/o SROM which was negative and sent home. Patient seen in L&D for evaluation. BP is 120/84. Labs normal. No edema or RUQ pain. No bleeding or contractions. Will d/c home with 24 hr urine for protein. Follow up in office next week. Test 12/27/17 20:38 12/27/17 21:41 White Blood Count 18.68 Red Blood Count 4.13 Hemoglobin 11.8 Hematocrit 35.6 Mean Corpuscular Volume 86.2 Mean Corpuscular Hemoglobin 28.6 Mean Corpuscular Hemoglobin Concent 33.1 Platelet Count 225 Mean Platelet Volume 12.5 Neutrophils (%) (Auto) 71.6 Lymphocytes (%) (Auto) 17.5 Monocytes (%) (Auto) 8.1 Eosinophils (%) (Auto) 0.7 Basophils (%) (Auto) 0.2 Neutrophils # (Auto) 13.37 Lymphocytes # (Auto) 3.27 Monocytes # (Auto) 1.51 Eosinophils # (Auto) 0.14 Basophils # (Auto) 0.03 RDW Standard Deviation 45.2 RDW Coefficient of Variation 14.5 Immature Granulocyte % (Auto) 1.9 Immature Granulocyte # (Auto) 0.36 Total Bilirubin 0.2 Direct Bilirubin < 0.1 Aspartate Amino Transferase (AST) 11 Alanine Aminotransferase (ALT) 12 Alkaline Phosphatase 195 Total Protein 6.3 Albumin 2.5 Urine Collection Time Pending Urine Total Volume Pending Urine Total Protein 24 Hour Pending Urine Total Protein Pending
== END 2017-12-27 22:15 | disposition home or self-care (01) ==
LOC: C.OPB 20:09 → C.LD 20:09 → C.OPB 22:15
PROVIDERS: ATTEND Obstetrics & Gynecology
DX: Z34.03 Encounter for supervision of normal first pregnancy, third trimester (principal); Z3A.39 39 weeks gestation of pregnancy

== ENCOUNTER 2017-12-28 23:46 | Inpatient (IN) | payer OTHER ==
[~2017-12-28] VITALS: Ht 157.5 cm; Wt 104.5 kg
[2017-12-29 00:47] VITALS: Ht 157.5 cm; Wt 104.5 kg
[2017-12-29] MEDS ORDERED: LACTATED RINGER'S 1000ML 1,000 ML IV SCH (01:49)
[2017-12-29] MEDS ORDERED: BUTORPHANOL TARTRATE 1 MG/ML VIAL IV PRN ×2 (02:00→04:00)
[2017-12-29 02:33] LABS: HEMATOCRIT 35.8 % (37-47); HEMOGLOBIN 12.1 g/dL (12.0-16.0); MEAN CELL VOLUME 86.9 fL (80-100); MEAN CORPUSCULAR HEMOGLOBIN 29.4 pg (25-34); MEAN CORPUSCULAR HGB CONC 33.8 g/dl (32-36); MEAN PLATELET VOLUME 12.8 fL (7.4-10.4); PLATELET COUNT 225 K/uL (130-400); RED CELL DISTRIBUTION WIDTH CV 14.5 % (11.5-14.5); RED CELL DISTRIBUTION WIDTH SD 45.4 fL (36.4-46.3); WHITE BLOOD COUNT 29.22 K/uL (4.8-10.8)
[2017-12-29] MEDS ORDERED: NURSING VERBAL MED ORDER ONE (04:00)
[2017-12-29] MEDS ORDERED: BUPIVACAINE 0.25% 30 ML VIAL ONE (06:39)
[2017-12-29] MEDS ORDERED: EpHEDrine SULFATE INJ 50 MG/ML AMP ONE (06:39)
[2017-12-29] MEDS ORDERED: FENTANYL 2MCG/ML ROPIV 1.25MG/ML 100ML BAG EPI ONE (06:40)
[2017-12-29] MEDS ORDERED: FENTANYL CITRATE INJ 50 MCG/1 ML 2 ML VIAL ONE (06:40)
[2017-12-29] MEDS ORDERED: NALOXONE HCL INJ 1 MG in SODIUM CHLORIDE 0.9% 1000ML 1,000 ML IV PRN (09:04)
[2017-12-29] MEDS ORDERED: LACTATED RINGER'S 1000ML 500 ML IV PRN ×2 (09:04→09:31)
[2017-12-29] MEDS ORDERED: DiphenhydrAMINE HCL 50 MG/ML VIAL IV PRN (09:15)
[2017-12-29] MEDS ORDERED: EpHEDrine SULFATE INJ 50 MG/ML AMP IV PRN (09:15)
[2017-12-29] MEDS ORDERED: ONDANSETRON INJ 2 MG/ML 2 ML VIAL IV PRN (09:15)
[2017-12-29] MEDS ORDERED: NALOXONE HCL INJ 0.4 MG/1 ML VIAL/CARP IV PRN (09:15)
[2017-12-29] MEDS ORDERED: NALBUPHINE HCL INJ 10 MG/ML AMP IV PRN (09:15)
[2017-12-29] MEDS ORDERED: OXYTOCIN 30 UNITS/500ML NSS IV PRN ×2 (09:45→18:00)
[2017-12-29] MEDS: FENTANYL 2MCG/ML ROPIV 1.25MG/ML 100ML BAG EPI PRN ×2 (14:50→16:51)
[2017-12-29] MEDS ORDERED: MISOPROSTOL 200 MCG TAB ONE (17:41)
--- NOTE | 2017-12-29 17:52 | Anesthesia Procedure Note ---
Anesthesia Epidural Removal Nt Date & Time Dec 29, 2017 at 17:52 Vital Signs Pain Intensity: 2.0 Notes Mental Status: alert / awake / arousable, participated in evaluation Nausea / Vomiting: adequately controlled Pain: adequately controlled Airway Patency, RR, SpO2: stable & adequate BP & HR: stable & adequate Hydration State: stable & adequate Neuraxial Anesthesia: was administered, sensory block is resolving Anesthetic Complications: no major complications apparent, pt satisfied with anesthetic care Epidural: removed without complications, with tip intact
[2017-12-29] MEDS ORDERED: BENZOCAINE 20% AER SPR 82.5 GM CAN EXT PRN (18:00)
[2017-12-29] MEDS ORDERED: ACETAMINOPHEN/CODEINE 300/30MG TAB PO PRN ×2 (18:00)
[2017-12-29] MEDS ORDERED: SUPERCREAM 0.870 % 15GM JAR EXT PRN (18:00)
[2017-12-29] MEDS ORDERED: HYDROCORTISONE ACETATE 25 MG SUPP PR PRN (18:00)
[2017-12-29] MEDS ORDERED: ACETAMINOPHEN 325 MG TAB PO PRN (18:00)
[2017-12-29] MEDS ORDERED: MISOPROSTOL 200 MCG TAB PR SCH (18:00)
[2017-12-29] MEDS ORDERED: OXYCODONE/ACETAMINOPHEN 5-325 TAB PO PRN (18:00)
[2017-12-29] MEDS ORDERED: LANOLIN OINT EXT PRN (18:00)
[2017-12-29] MEDS: IBUPROFEN 600 MG TAB PO PRN (18:30)
--- NOTE | 2017-12-29 19:14 | HISTORY & PHYSICAL EXAMINATION ---
DATE OF ADMISSION: 12/29/2017 HISTORY OF PRESENT ILLNESS: This is a 22-year-old G3, P0, due date 01/03/2018, making her 39 weeks and 2 on 12/29/2017. The patient arrived to labor and delivery with complaints of possible rupture of membranes. She also complained of contraction every 4-8 minutes. On arrival to labor and delivery, initial evaluation showed AmniSure was negative. She was not ruptured. She was observed for a few hours because of her contractions. Repeat exam, however, showed grossly ruptured membranes. AmniSure repeated was then positive. Decision was, therefore, made to admit the patient. course has been unremarkable. PAST MEDICAL HISTORY: 1. History of recurrent UTIs. 2. History of congenital obstruction of ureteropelvic junction. 3. History of nephritis. 4. History of asthma. 5. History of bipolar disorder. 6. History of depression. 7. History of posttraumatic stress disorder. PAST SURGICAL HISTORY: Includes: 1. Revision of kidney ureter: 2. History of tonsillectomy. SOCIAL HISTORY: The patient is a smoker. Denied drug or alcohol use. FAMILY HISTORY: Noncontributory. PHYSICAL EXAMINATION: GENERAL: Well-developed, well-nourished white female in no acute distress. HEART: S1, S2, regular rhythm and rate. LUNGS: Clear to auscultation bilaterally. ABDOMEN: Gravid. PELVIC: On admission, the patient is 3 cm, 50% effaced and -2. EXTREMITIES: No cyanosis, clubbing, edema. ASSESSMENT AND PLAN: A 22-year-old G3, P0, at 39 and 2, term, premature rupture of membranes. The patient is admitted. PLAN: Anticipate vaginal delivery.
--- NOTE | 2017-12-29 19:29 | DELIVERY SUMMARY ---
DATE OF OPERATION: 12/29/2017 The patient delivered a live infant female in left occiput anterior presentation. There was no nuchal cord. Infant was delivered. There was terminal meconium. Cord was clamped and cut after 1 minute. 's weight is pending. Apgars 8 and 9. Placenta spontaneously delivered. Inspection of the placenta shows grossly normal placenta with 3-vessel cord. Inspection of the perineum showed midline second-degree laceration with bilateral vaginal lacerations which were repaired with 2-0 Vicryl. Rectal exam post repair showed good sphincter tone. No sutures were palpated in the rectum. ESTIMATED BLOOD LOSS: 400 mL All instruments were removed from the vagina including retractors and accounted for x2. The patient and are doing well in recovery. I attest to the content of the Intraoperative Record and any orders documented therein. Any exception s are noted below.
[2017-12-29 20:50] VITALS: BP 122/78; PULSE 96; TEMP 37.3; O2SAT 95
[2017-12-29] MEDS: DOCUSATE SODIUM 100 MG CAP PO SCH (20:50)
[2017-12-30 00:45] VITALS: BP 104/70; PULSE 103; TEMP 36.9; O2SAT 96
[2017-12-30 04:10] VITALS: BP 117/69; PULSE 80; TEMP 36.3; O2SAT 97
[2017-12-30] MEDS: IBUPROFEN 600 MG TAB PO PRN (04:29)
[2017-12-30 06:28] LABS: HEMATOCRIT 30.2 % (37-47); HEMOGLOBIN 10.4 g/dL (12.0-16.0)
[2017-12-30 07:40] VITALS: BP 114/77; PULSE 81; TEMP 36.6
[2017-12-30] MEDS: PRENATAL VITAMIN TAB PO SCH (07:51)
[2017-12-30] MEDS: DOCUSATE SODIUM 100 MG CAP PO SCH ×2 (07:51→19:37)
[2017-12-30] MEDS: FERROUS SULFATE 325 MG TAB PO SCH (07:51)
[2017-12-30] MEDS: POLYETHYLENE (MIRALAX) 17 GM PACK PO SCH (09:26)
[2017-12-30 12:00] VITALS: BP 121/80; PULSE 80; TEMP 36.7
--- NOTE | 2017-12-30 12:41 | OB/GYN Progress Note ---
[facility] Progress Note Date of Service Dec 30, 2017. Subjective conversation w/ patient, physical exam Ambulation: ambulating normally Voiding: no voiding problems Passing Gas: Yes Diet Tolerance: Regular Diet Lochia: Small Feeding Type: Breast Feeding Objective Vital Signs Date Time Temp Pulse Resp B/P (MAP) Pulse Ox O2 Delivery O2 Flow Rate FiO2 12/30/17 07:40 Room Air 12/30/17 07:40 36.6 81 18 114/77 (89) Room Air 12/30/17 04:10 36.3 80 16 117/69 (85) 97 Room Air 12/30/17 00:45 Room Air 12/30/17 00:45 36.9 103 18 104/70 (81) 96 Room Air 12/29/17 20:50 37.3 96 18 122/78 (93) 95 Room Air 12/29/17 20:50 Room Air Physical Exam General Appearance: WELL-APPEARING, NO APPARENT DISTRESS Abdomen: non tender, soft Fundus: Firm Extremities: non-tender, normal inspection, no pedal edema Laboratory Results Last 24 Hours Test 12/30/17 06:04 Hemoglobin 10.4 g/dL Hematocrit 30.2 % Assessment and Plan Post- Day Number: 1 Continue Routine Care: TENT D/C IN am
[2017-12-30 15:45] VITALS: BP 115/78; PULSE 79; TEMP 36.7
[2017-12-30] MEDS ORDERED: BISACODYL 5 MG TABEC PO SCH (20:00)
[2017-12-30 23:55] VITALS: BP 115/80; PULSE 84; TEMP 36.5
[2017-12-31] MEDS: IBUPROFEN 600 MG TAB PO PRN ×2 (00:22→08:03)
[2017-12-31] MEDS ORDERED: BISACODYL 10 MG SUPP PR PRN (07:00)
[2017-12-31] MEDS ORDERED: MTR600X PO (07:07)
--- NOTE | 2017-12-31 07:08 | Discharge Instructions ---
Discharge Instructions Date of Service Dec 31, 2017. Admission Reason for Admission: Rupture Of Membranes Discharge Discharge Diagnosis / Problem: Vaginal Delivery Discharge Goals Goal(s): Routine recovery after delivery Medications Continue Dispensed Medications: supercream, dermaplast, tucks, lansinoh Activity Recommendations Activity Limitations: per Instructions/Follow-up section . Instructions / Follow-Up Instructions / Follow-Up ACTIVITY RECOMMENDATIONS: * Gradual return to full activity over the next 2-3 weeks. * No lifting - nothing heavier than baby over the next 2-3 weeks. * Do not engage in vigorous exercise, sexual activity or sports until cleared by your physician. * Do not drive or operate any motorized equipment until cleared by your physician. * You may shower/bathe daily. BREAST CARE: If you are not breast feeding: * Wear a supportive bra 24 hours a day for one to two weeks. * Avoid stimulating your breasts and nipples as much as possible during the first few weeks after delivery. * When taking a shower, have the warm water hit your back, not breasts. * When your breasts feel full, apply ice packs. Usually three to four times a day helps ease the discomfort. * Take a mild pain medication (Tylenol/Motrin) when you are uncomfortable. If breast feeding: * Use breast milk to lubricate nipples. Lansinoh cream may be used for sore nipples. You do not need to remove cream prior to breast feeding. If using a different brand of cream, check the label for directions regarding removal of cream prior to nursing. * Wear a supportive bra. * If having problems with breasts or breast feeding, call a healthcare consultant or your health care provider. EPISIOTOMY CARE: After delivery, if you have an episiotomy (stitches), the following steps will ease discomfort and aid healing. * For the first 24 hours after delivery, place ice packs next to your episiotomy to help reduce swelling. * After the first 24 hour-period, sitz baths, either portable or in the tub, are suggested. A shower with a shower arm sprayed over the episiotomy may be comforting. * Jannet care should be done after each voiding and bowel movement. Squirt warm water from a plastic bottle over the perineum (region of the body between the anus and urinary opening) and pat dry. * Use Dermoplast to ease discomfort. Shake container. [place] directly over the episiotomy. * Place a Tucks on a clean sanitary pad next to your episiotomy. OVER THE COUNTER MEDICATION: * For discomfort or pain, you may use Acetaminophen (Tylenol), Ibuprofen (Advil ), or Naproxen (Aleve) following the package directions. * For constipation you may use Colace following the package directions. SPECIAL CARE INSTRUCTIONS: When you are discharged from the hospital, it is important for you to follow the instructions listed below: * During the first week at home, you should be able to care for yourself and your baby. In addition, the usual light household activities are encouraged. * Limit your activities to the way you feel. Do not try to clean the house or move furniture. Be sensible. * If you actively engage in sports and have done so up until the time of your delivery, you may resume these activities as soon as you feel able. This may take up to one month or even longer. Use good judgment. * Continue to take your vitamins for at least six weeks after the of your baby. * Your diet need not be limited unless you were on a special diet before your delivery. Breast-feeding mothers need around 2500 calories per day and at least 64-80 ounces of fluid per day (8 to 10 glasses). * You should eat foods from the four major food groups. Crash diets or fad diets are to be avoided. Eating lean meats, fresh fruits and vegetables, low-fat dairy products, high fiber foods and a regular exercise program, will help you get back to your pre- weight without putting your health at risk. * Constipation is sometimes a problem after delivery. Take a mild laxative as needed. If breast feeding, Milk of Magnesia is acceptable to use. You may use a suppository or Fleets enema if no episiotomy. * A daily shower or tub bath is suggested. Be sure to thoroughly and gently dry the perineum. * A bloody vaginal discharge will usually continue until around four weeks post . A small amount of bleeding may continue for as long as six weeks. Vaginal discharge changes from the bright red bleeding after delivery to pink then brownish and finally yellowish-pink before becoming white and disappearing. * Bleeding may increase with activity. Your first period may come in 4-8 weeks. If you are breast feeding, your period may be delayed even longer. * [place] (sex) can begin whenever both you and your partner feel comfortable and do not have any form of genital infection. It is recommended that you wait until after your return appointment and discuss with your physician. If you have questions, please talk to your health care practitioner. A condom should be used to prevent infection and . * Foreplay, gentle intercourse and lubrication is very important the first several times to prevent pain. A water-based lubricant such as K-Y jelly or Astroglide may be used. * Tampons may be used six weeks after delivery. * Douching should be avoided for 6 weeks after delivery. * If you have RH negative blood and your baby is RH positive, you will receive RHOGAM by injection prior to discharge. The nurse will give you a card to keep with you that has the date and place that you received RHOGAM after delivery. * During your care, you had a Rubella screen done to check for the presence of rubella antibodies in your blood. If your test was negative, you will receive a Rubella vaccine prior to discharge. This vaccine may cause a fever, soreness at the injection site and flu-like symptoms. If these symptoms persist, notify your health care practitioner. is not advised for three months after a Rubella vaccine. There is a higher chance of having a baby with defects if conceived within three months of getting the vaccine. * If you were discharged 24 hours from delivery or before 48 hours: Visiting nurses will come to your home 48 hours after discharge to assess you and your baby. The visiting nurse will meet with you while you are in the hospital to arrange a time and get directions to your home. * Verbalizes understanding of car seat law as reviewed with patient nursing. * Car Seat hand-out given and reviewed with patient by nursing. * Shaken baby information reviewed with patient by nursing. Call you doctor if: * Heavy bleeding (saturating several pads an hour) or passing clots the size of your fist. * A fever >101 degrees F (38.3 degrees C) on two occasions four hours apart and/or chills. * Unusual pain in the pelvic or vaginal areas. * "Baby Blues" lasting longer than two weeks. If you have any questions or concerns, call your health care practitioner at . FOLLOW-UP VISIT: * Please call the office at to schedule a 6 week examination. It is important you keep this appointment. * It is important for you to make arrangements for either yearly or twice yearly check-ups thereafter. Current Hospital Diet Patient's current hospital diet: Regular Diet Discharge Diet Recommended Diet: Regular OB Diet Pending Studies Studies pending at discharge: no Medical Emergencies . Who to Call and When: Medical Emergencies: If at any time you feel your situation is an emergency, please call 911 immediately. . Non-Emergent Contact Non-Emergency issues call your: Primary Care Provider, Chemist Assistant . . "Provider Documentation" section prepared by Schuyler Torres. .
--- NOTE | 2017-12-31 07:10 | OB/GYN Progress Note ---
[employer] Progress Note Date of Service Dec 31, 2017. Subjective conversation w/ patient, physical exam Ambulation: ambulating normally Voiding: no voiding problems Passing Gas: Yes Diet Tolerance: Regular Diet Lochia: Small Feeding Type: Bottle Feeding Pain: 12/31 Notes: Doing well, no concerns. Pain well controlled. Tolerating regular diet. Ambulating without difficulty. Would like to go home today. Objective Vital Signs Date Time Temp Pulse Resp B/P (MAP) Pulse Ox O2 Delivery O2 Flow Rate FiO2 12/30/17 23:55 36.5 84 18 115/80 (92) Room Air 12/30/17 23:55 Room Air 12/30/17 15:45 Room Air 12/30/17 15:45 36.7 79 18 115/78 (90) Room Air 12/30/17 12:00 36.7 80 18 121/80 (94) Room Air 12/30/17 07:40 Room Air 12/30/17 07:40 36.6 81 18 114/77 (89) Room Air Physical Exam General Appearance: WELL-APPEARING Respiratory/Chest: chest non-tender, lungs clear Cardiovascular: regular rate, rhythm Abdomen: normal bowel sounds, soft Fundus: Firm Extremities: normal range of motion, non-tender, no calf tenderness Laboratory Results Last 24 Hours Test 12/31/17 04:44 Assessment and Plan Post- Day Number: 2 Continue Routine Care: -D/C home today -F/U in 6 weeks.
[2017-12-31 07:35] VITALS: BP 116/80; PULSE 79; TEMP 36.4
[2017-12-31] MEDS: DOCUSATE SODIUM 100 MG CAP PO SCH (08:02)
[2017-12-31] MEDS: FERROUS SULFATE 325 MG TAB PO SCH (08:02)
[2017-12-31] MEDS: PRENATAL VITAMIN TAB PO SCH (08:02)
[2017-12-31] MEDS: POLYETHYLENE (MIRALAX) 17 GM PACK PO SCH (08:03)
[2017-12-31 08:22] LABS: HEMATOCRIT 30.9 % (37-47); HEMOGLOBIN 10.4 g/dL (12.0-16.0); MEAN CELL VOLUME 86.8 fL (80-100); MEAN CORPUSCULAR HEMOGLOBIN 29.2 pg (25-34); MEAN CORPUSCULAR HGB CONC 33.7 g/dl (32-36); MEAN PLATELET VOLUME 12.2 fL (7.4-10.4); PLATELET COUNT 216 K/uL (130-400); RED CELL DISTRIBUTION WIDTH SD 46.4 fL (36.4-46.3); WHITE BLOOD COUNT 18.35 K/uL (4.8-10.8)
[2017-12-31 14:30] VITALS: BP_DIAS 80; PULSE 79; TEMP 36.4
== END 2017-12-31 15:40 | disposition home or self-care (01) | DRG 775 ==
LOC: C.OPB 23:46 → C.LD 23:46 → C.OPB 12-29 01:51 → C.OBG 12-29 20:54
PROVIDERS: ADMIT Obstetrics & Gynecology; ATTEND Obstetrics & Gynecology
PROC: 10E0XZZ Delivery of Products of Conception, External Approach (ICD-10-PCS; principal; 2017-12-29)
PROC: 0KQM0ZZ Repair Perineum Muscle, Open Approach (ICD-10-PCS; principal; 2017-12-29)
DX: O70.1 Second degree perineal laceration during delivery (principal); O99.334 Smoking (tobacco) complicating childbirth; O99.52 Diseases of the respiratory system complicating childbirth; O99.344 Other mental disorders complicating childbirth; F17.200 Nicotine dependence, unspecified, uncomplicated; Z90.5 Acquired absence of kidney; Z3A.39 39 weeks gestation of pregnancy; Z37.0 Single live birth